=== PATIENT | female | born 1970 | race Caucasian/White ===

== ENCOUNTER → 2018-07-12 | Emergency (ER) | payer BC, OTHER ==
[~2018-07-12] MED LIST: KETOROLAC TROMETHAMINE 30 MG/1 ML VIAL IVPUSH ONE; KETOROLAC TROMETHAMINE 30 MG/1 ML VIAL ONE; ONDANSETRON 4 MG/2 ML VIAL IVPUSH ONE; ONDANSETRON 4 MG/2 ML VIAL ONE; morphine CARPU-JECT 4 MG/1 ML DISP.SYRIN IVPUSH ONE; morphine SULFATE 4 MG/ML VIAL ONE
--- NOTE | 2018-07-12 16:26 | PDOC ---
History of Present Illness - General Chief Complaint: Edema Stated Complaint: leg injury Time Seen by Provider: 07/12/18 16:25 History Source: Patient Exam Limitations: No Limitations - History of Present Illness Initial Comments: 07/12/18 16:54 47-year-old female with past medical history of rheumatoid arthritis, migraines , anxiety presented to emergency department for right knee pain and right ankle pain after a fall from standing. Patient stated she slipped and fell while shopping today, able to get herself, and drive herself home. She stated the pain was increasing and that the pain was increasing, so she called the ambulance to come to the emergency department. She denied head injury, LOC, vomiting. She denied back pain, neck pain, abdominal pain, headache, changes to vision, or upper extremity pain. She denied chest pain, shortness of breath, lightheadedness prior to falling. Pt admitted to numbess "all over" from the knee down. Allergies: NKDA Past History - Past Medical History Allergies/Adverse Reactions: Allergies Allergy/AdvReac Type Severity Reaction Status Date / Time No Known Allergies Allergy Verified 07/12/18 16:40 Home Medications: Ambulatory Orders Alprazolam [Xanax] 1 mg PO BID 07/12/18 Amitriptyline HCl [Elavil -] 10 mg PO DAILY 07/12/18 Aspirin [ASA -] 325 mg PO BID 07/12/18 Ibuprofen 600 mg PO TID #12 tablet 07/12/18 Oxycodone HCl/Acetaminophen [Percocet 5-325 mg Tablet] 1 tab PO BID PRN #6 tablet MDD 2 07/12/18 Review of Systems - Review of Systems Able to Perform ROS?: Yes Comments:: 07/12/18 16:57 General: denied fever, chills, night sweats, generalized weakness. HEENT: denied sore throat, rhinorrhea, ear pain. Heart: denied chest pain, palpitations, syncope, lower extremity swelling, diaphoresis. Respiratory: denied shortness of breath, cough, sputum production, hemoptysis. Abdomen: denied abdominal pain, nausea, vomiting, diarrhea, constipation, blood in stool. : denied dysuria, increased urinary frequency, hematuria, urinary incontinence , flank pain. Back: denied back pain. Musculoskeletal: admitted to right knee pain, right ankle pain, right foot pain. Neurological: admitted to numbness. denied headache, dizziness, weakness. Skin: denied rash, laceration, abrasion. *Physical Exam - Physical Exam Comments: 07/12/18 16:57 Constitutional: Well-nourished, Well-developed, appearing stated age. HEENT: head is normocephalic, atraumatic. EOMI. PERRLA. no midline c-spine tenderness. no paraspinal c-spine tenderness. no scalp hematoma. no racoon eyes. no jones sign. Neck: supple. Full ROM. Heart: regular rhythm. no murmurs, rubs or gallops. Lungs: clear to auscultation bilaterally. no crackles, rhonchi or wheezing. no stridor. Abdomen: soft, nontender. normal bowel sounds. no rebound, guarding, masses. Extremities: 1+ DSP bilaterally. equal temperature to feet. pt can wiggle all toes. full sensation throughout, but stated sensation feels "less" in right foot. tenderness to right lateral malleolus, navicular area, right knee. pt unable to flex knee secondary to pain. pt unable to move ankle through ROM secondary to pain. Neurological: CN 2-12 grossly intact. Moves all four extremities. Psych: awake, alert, oriented x3. Follows commands. Answers questions appropriately. ED Treatment Course - LABORATORY CBC & Chemistry Diagram: 07/12/18 16:56 07/12/18 16:56 Medical Decision Making - Medical Decision Making 07/12/18 16:59 47 year old female with above PMH BIBA to ED for right knee pain/right ankle pain/right foot pain s/p slip and fall from standing. Pt was able to ambulate and bear weight after fall. Initial Vital Signs Temp Pulse Resp BP Pulse Ox 99.0 F 89 16 160/100 100 07/12/18 16:36 07/12/18 16:36 07/12/18 16:36 07/12/18 16:36 07/12/18 16:36 Afebrile. No tachycardia. No tachypnea. Hypertensive, likely secondary to pain. No hypoxia on room air. Morphine 4 mg IV ordered for pain. Zofran 4 mg IV ordered for prophylaxis of nausea from narcotics. Pre-op labs drawn. Pending XR right knee, right ankle, right foot. 07/12/18 20:31 CBC WBC 9.6 K/mm3 (4.0-10.0) 07/12/18 16:56 RBC 4.48 M/mm3 (3.60-5.2) 07/12/18 16:56 Hgb 13.1 GM/dL (10.7-15.3) 07/12/18 16:56 Hct 37.8 % (32.4-45.2) 07/12/18 16:56 MCV 84.4 fl (80-96) 07/12/18 16:56 MCH 29.3 pg (25.7-33.7) 07/12/18 16:56 MCHC 34.7 g/dl (32.0-36.0) 07/12/18 16:56 RDW 14.5 % (11.6-15.6) 07/12/18 16:56 Plt Count 340 K/MM3 (134-434) 07/12/18 16:56 MPV 9.0 fl (7.5-11.1) 07/12/18 16:56 Absolute Neuts (auto) 6.9 K/mm3 (1.5-8.0) 07/12/18 16:56 Neutrophils % 72.4 % (42.8-82.8) 07/12/18 16:56 Lymphocytes % 18.0 % (8-40) 07/12/18 16:56 Monocytes % 7.9 % (3.8-10.2) 07/12/18 16:56 Eosinophils % 1.1 % (0-4.5) 07/12/18 16:56 Basophils % 0.6 % (0-2.0) 07/12/18 16:56 Nucleated RBC % 0 % (0-0) 07/12/18 16:56 CMP Sodium 140 mmol/L (136-145) 07/12/18 16:56 Potassium 3.8 mmol/L (3.5-5.1) 07/12/18 16:56 Chloride 105 mmol/L (98-107) 07/12/18 16:56 Carbon Dioxide 24 mmol/L (21-32) 07/12/18 16:56 Anion Gap 11 MMOL/L (8-16) 07/12/18 16:56 BUN 7 mg/dL (7-18) 07/12/18 16:56 Creatinine 0.9 mg/dL (0.55-1.3) 07/12/18 16:56 Creat Clearance w eGFR > 60 (>60) 07/12/18 16:56 Random Glucose 89 mg/dL (74-106) 18 16:56 Calcium 9.6 mg/dL (8.5-10.1) 18 16:56 Beta HCG, Quant < 1.0 mIU/ml 07/12/18 16:56 Labs within normal limits. Right knee XR: no acute fracture or dislocation. joint effusion noted. Chest XR: no acute fracture, no infiltrate, no cardiomegaly, no pleural effusions. Right ankle/foot XR: navicular abnormality. - Sent to [facility] - Pending official read. Pt informed of knee and chest XR result and that her ankle/foot XR was sent to [facility]. 07/12/18 21:07 Pt reassessed, reported improvement of pain with morphine, but that the pain is starting to return. - Toradol ordered. Pt placed in knee immobilizer. 07/12/18 21:59 Official right foot/ankle XR: no fracture. no dislocations. calcaneal spur. normal eos tibiale externum immediately posterior to the medial tip of the navicular bone. Juan Antonio wrap applied to right ankle. Pt will be discharged. Pt will be educated on crutches use. Pt will be given prescription for percocet and ibuprofen. 07/14/18 09:34 Official XR report reviewed: no acute fracture/dislocation. *DC/Admit/Observation/Transfer Diagnosis at time of Disposition: Knee pain, Ankle pain, Fall - Discharge Dispostion Disposition: HOME Condition at time of disposition: Stable Decision to Admit order: No - Prescriptions Prescriptions: Ibuprofen 600 mg PO TID #12 tablet Oxycodone HCl/Acetaminophen [Percocet 5-325 mg Tablet] 1 tab PO BID PRN #6 tablet MDD 2 PRN Reason: Severe Pain - Referrals Referrals: Chino Muhammad [Primary Care Provider] - Mario Heath DO [Staff Physician] - Bravo Grady MD [Staff Physician] - Jake Faith MD [Staff Physician] - - Patient Instructions Printed Discharge Instructions: DI for Ankle Pain, DI for Knee Pain Additional Instructions: You were seen today for knee and ankle pain. Your X-rays showed no broken bones or fractures. Follow up with your orthopedic doctor in 1-2 days. I have also provided you with a referral for our orthopedic doctors, should you need it. Your lab work was normal. I have sent a prescription to your pharmacy for percocet, take as advised on label. Take tylenol and/or ibuprofen over the counter for your pain, take as advised on labels. Follow up with your primary care doctor in 1-2 days. Your care is not complete until you follow up. Return to the Emergency Department for increasing pain, blue/white discoloration to toes, inability to move toes, chest pain, shortness of breath, or any other new , worsening or concerning symptoms. - Post Discharge Activity Forms/Work/School Notes: Back to Work
[2018-07-12 16:40] VITALS: BP 160/100; PULSE 89; TEMP 99; BMI 35.2
[2018-07-12 17:18] LABS: BASO % 0.6 % (0-2.0); EOS % 1.1 % (0-4.5); HEMATOCRIT 37.8 % (32.4-45.2); HEMOGLOBIN 13.1 GM/dL (10.7-15.3); MCH 29.3 pg (25.7-33.7); MCHC 34.7 g/dl (32.0-36.0); MEAN CELL VOLUME 84.4 fl (80-96); MONO % 7.9 % (3.8-10.2); NEUT % 72.4 % (42.8-82.8); PLATELET COUNT 340 K/MM3 (134-434); RBC 4.48 M/mm3 (3.60-5.2); RDW 14.5 % (11.6-15.6); WHITE BLOOD COUNT 9.6 K/mm3 (4.0-10.0)
--- NOTE | 2018-07-12 17:24 | PDOC ---
Attending Attestation - Resident Resident Name: MaritzaDarlene - ED Attending Attestation I have performed the following: I have examined & evaluated the patient, The case was reviewed & discussed with the resident, I agree w/resident's findings & plan, Exceptions are as noted - HPI HPI: 07/12/18 17:24 47-year-old female was walking in the store and tripped, falling forward onto her right knee. She has not been able to ambulate since the fall. She denies any head trauma - Physicial Exam PE: 07/12/18 17:24 47-year-old female brought in by ambulance after a fall Head normocephalic/atraumatic C spine no midline cervical vertebral tenderness Lungs clear to auscultation bilaterally CVS is regular rate and rhythm S1, S2 Abdomen soft, nontender, no rebound or guarding. Extremities exam shows a swollen right knee with ecchymosis and tenderness to her lateral malleolus, sensation is intact, DP and PT pulses are intact, cap refill less than 2 seconds musculoskeletal - no cva tenderness,no lumbar vertebral tenderness Warm and dry. Neuro alert and oriented 3 Psych appropriate 07/12/18 22:25 - Medical Decision Making 07/12/18 22:28 there was no fracture or dislocation seen on her ankle and tib/fib radiographs knee immobilizer placed for comfort and she was discharged imp ankle sprain/knee contusion plan f/u with ortho for any persistent pain 07/12/18 22:44
[2018-07-12 17:47] LABS: ANION GAP 11 MMOL/L (8-16); BLOOD UREA NITROGEN 7 mg/dL (7-18); CALCIUM 9.6 mg/dL (8.5-10.1); CHLORIDE 105 mmol/L (98-107); CO2 24 mmol/L (21-32); CREATININE 0.9 mg/dL (0.55-1.3); GLUCOSE,RANDOM 89 mg/dL (74-106); POTASSIUM 3.8 mmol/L (3.5-5.1); SODIUM 140 mmol/L (136-145)
== END | disposition home or self-care (01) ==
LOC: JER 16:17
DX: M25.561 Pain in right knee (principal); M25.571 Pain in right ankle and joints of right foot; M06.9 Rheumatoid arthritis, unspecified; F41.9 Anxiety disorder, unspecified
CPT/HCPCS: 36415; 71045-TC-FY; 73562-TC-RT-FY; 73610-TC-RT-FY; 73630-TC-RT-FY; 80048; 84702; 85025; 86850; 86900; 86901; 99285-25

== ENCOUNTER 2021-03-27 07:49 | Emergency (ER) | payer BC ==
[2021-03-27 07:57] VITALS: BP 158/95; PULSE 94; TEMP 98.4; BMI 43.4
[2021-03-27] MEDS ORDERED: FLUORESCEIN NA 1 EA STRIP OD ONE (08:40)
[2021-03-27] MEDS ORDERED: FLUORESCEIN NA 1 EA STRIP ONE (08:48)
[2021-03-27 09:32] LABS: BASO % 0.7 % (0-2.0); EOS % 4.6 % (0-4.5); HEMOGLOBIN 12.4 GM/dL (10.7-15.3); LYMPH % 24.7 % (8-40); MCH 25.6 pg (25.7-33.7); MCHC 32.6 g/dl (32.0-36.0); MEAN CELL VOLUME 78.7 fl (80-96); MEAN PLT VOLUME 8.9 fl (7.5-11.1); MONO % 7.2 % (3.8-10.2); NEUT % 62.8 % (42.8-82.8); PLATELET COUNT 323 10^3/uL (134-434); RBC 4.83 M/mm3 (3.60-5.2); RDW 16.1 % (11.6-15.6); WHITE BLOOD COUNT 5.5 K/mm3 (4.0-10.0)
[2021-03-27 09:47] LABS: ALBUMIN 3.8 g/dl (3.4-5.0); BLOOD UREA NITROGEN 7.9 mg/dL (7-18); CALCIUM 9.4 mg/dL (8.5-10.1)
[2021-03-27 09:50] LABS: CREATININE 0.8 mg/dL (0.55-1.3)
[2021-03-27 09:52] LABS: BILIRUBIN,TOTAL 0.3 mg/dL (0.2-1); TOT PROT 8.1 g/dl (6.4-8.2)
[2021-03-27] MEDS ORDERED: valACYclovir HCL 1000 MG TABLET PO ONE (10:01)
[2021-03-27] MEDS ORDERED: predniSONE 20 MG TABLET (UD) PO ONE (10:01)
== END 2021-03-27 10:46 | disposition home or self-care (01) ==
LOC: JER 07:49
DX: G51.0 Bell's palsy (principal)
CPT/HCPCS: 36415; 80053; 85025; 86618; 99283-25